=== PATIENT | male | born 1955 | race Caucasian/White ===

== ENCOUNTER → 2020-06-10 | Outpatient (CLI) | payer MEDICARE, OTHER | LOC: WCC 09:00 | DX: T81.31XA Disruption of external operation (surgical) wound, not elsewhere classified, initial encounter (principal); I70.261 Atherosclerosis of native arteries of extremities with gangrene, right leg; I70.233 Atherosclerosis of native arteries of right leg with ulceration of ankle; I25.10 Atherosclerotic heart disease of native coronary artery without angina pectoris; I50.9 Heart failure, unspecified; J44.9 Chronic obstructive pulmonary disease, unspecified; Z86.69 Personal history of other diseases of the nervous system and sense organs; F17.219 Nicotine dependence, cigarettes, with unspecified nicotine-induced disorders; Z79.82 Long term (current) use of aspirin; Z79.02 Long term (current) use of antithrombotics/antiplatelets; Z98.890 Other specified postprocedural states; Z95.1 Presence of aortocoronary bypass graft; Z71.89 Other specified counseling | CPT/HCPCS: 87070; 87077; 87186; 87205; G0463 ==